=== PATIENT | male | born 1960 | race Caucasian/White ===

== ENCOUNTER 2025-03-27 06:22 | Day surgery (SDC) | payer MEDICARE, OTHER, SELFPAY ==
[2025-03-27 07:14] LABS: Glucose - Point of Care 134 mg/dl (70-99)
== END 2025-03-27 09:15 | disposition home or self-care (01) ==
LOC: GI 06:22
PROVIDERS: ATTENDING PHYSICIAN Internal Medicine Gastroenterology
DX: Z12.11 Encounter for screening for malignant neoplasm of colon (principal); K64.8 Other hemorrhoids; K57.30 Diverticulosis of large intestine without perforation or abscess without bleeding; D12.0 Benign neoplasm of cecum; D12.8 Benign neoplasm of rectum; K63.5 Polyp of colon
CPT/HCPCS: 45380; 88305; 82962

== ENCOUNTER 2025-05-25 06:02 | Day surgery (SDC) | payer MEDICARE, OTHER, SELFPAY ==
[2025-05-25] VITALS (8 sets, daily range): BP systolic 95–118; BP diastolic 52–76; BMI 32.6
[2025-05-25 07:25] LABS: Glucose - Point of Care 125 mg/dl (70-99)
[2025-05-25 09:46] LABS: Glucose - Point of Care 130 mg/dl (70-99)
== END 2025-05-25 10:29 | disposition home or self-care (01) ==
LOC: GI 06:02
PROVIDERS: ATTENDING PHYSICIAN Internal Medicine Gastroenterology
DX: K63.5 Polyp of colon (principal); K64.0 First degree hemorrhoids; D12.6 Benign neoplasm of colon, unspecified; D13.39 Benign neoplasm of other parts of small intestine; D49.0 Neoplasm of unspecified behavior of digestive system; K57.30 Diverticulosis of large intestine without perforation or abscess without bleeding; D12.0 Benign neoplasm of cecum; K63.89 Other specified diseases of intestine
CPT/HCPCS: 45388; 45385; 82962; 88305